=== PATIENT | male | born 1960 | race Caucasian/White ===

== ENCOUNTER 2021-02-05 00:29 | Emergency (ER) | payer MEDICAID ==
[~2021-02-05] VITALS: Ht 190.5 cm; Wt 145.5 kg
[~2021-02-05 00:29] MED LIST: ANTIVERT 25MG25 MG PO; CLARINEX-D12 HO1 T12 PO; INDERAL 20MG20 MG PO; MEDROL 4MG DOSPA4 MG PO; PAXIL 10MG10 MG PO; PERCOCET 325 MG1 TA2 PO; PHENERGAN 25 TA25 MG PO; PRILOSEC 20MG20 MG PO; ZITHROMAX 250M250 MG PO
[2021-02-05 01:07] LABS: COLLECTION METHOD CLEAN CATCH
[2021-02-05 01:12] LABS: BASO % 0.3 % (0.0-2.0); EOS # 0.1 (0.0-0.7); EOS % 0.8 % (0-4.0); GRAN # 7.5 (1.4-6.5); GRAN % 77.6 % (42.2-75.2); HEMATOCRIT 42.9 % (42.0-52.0); HEMOGLOBIN 14.3 g/dl (13.5-18.0); LYMPH # 1.3 (1.2-3.4); LYMPH % 13.2 % (20.0-51.0); MEAN CELL VOLUME 97 fl (80.0-100.0); MEAN CORPUSCULAR HEMOGLOBIN 32 pg (27.0-31.0); MEAN CORPUSCULAR HGB CONC 33 g/dl (33.0-37.0); MONO # 0.8 (0.1-0.6); MONO % 7.9 % (1.7-9.3); PLATELET COUNT 186 K/mm3 (130-400); RED BLOOD COUNT 4.42 M/mm3 (4.20-5.60); REDCELL DISTRIBUTION WIDTH-CV 14.2 % (11.5-14.5)
[2021-02-05 01:27] LABS: MUCOUS Present /lpf; PH 5 (5-8); SQUAMOUS EPITHELIAL 0-2 /hpf; URINE APPEARANCE Hazy; URINE BACTERIA None Seen /hpf; URINE BILIRUBIN Negative (NEGATIVE); URINE BLOOD 3+ (NEGATIVE); URINE COLOR Yellow; URINE GLUCOSE Negative (NEGATIVE); URINE KETONE Negative (NEGATIVE); URINE LEUKOCYTE ESTERASE Negative (NEGATIVE); URINE NITRATE Negative (NEGATIVE); URINE PROTEIN(semi-quant) 1+ (NEGATIVE); URINE RBC >50 /hpf; URINE UROBILINOGEN >=4.0 mg/dL (NEGATIVE)
[2021-02-05 02:15] LABS: ALBUMIN 3.4 gm/dL (3.5-5.0); BILIRUBIN,TOTAL 0.3 mg/dL (0.2-1.2); CALCIUM 9.3 mg/dL (8.4-10.2); CREATININE, serum 1.27 mg/dL (0.72-1.25); POTASSIUM 4.4 mmol/L (3.5-4.5); TOTAL PROTEIN 7.1 gm/dL (6.2-8.1)
[2021-02-05 03:09] VITALS: TEMP 97.9
[2021-02-05] MEDS ORDERED: TORADOL 10MG TA10 MG PO (04:20)
[2021-02-05] MEDS ORDERED: ZOFRAN ODT4 MG PO (04:20)
[2021-02-05 04:35] VITALS: BP 145/90; PULSE 89
== END 2021-02-05 04:35 | disposition home or self-care (01) ==
LOC: COL.ER 00:29
PROVIDERS: Emergency Medicine
DX: N13.2 Hydronephrosis with renal and ureteral calculous obstruction (principal); F32.A Depression, unspecified; F41.9 Anxiety disorder, unspecified; I10 Essential (primary) hypertension; F17.210 Nicotine dependence, cigarettes, uncomplicated; Z79.899 Other long term (current) drug therapy
CPT/HCPCS: J1170; J1885; J2270; J2405; J7030; Q9967

== ENCOUNTER → 2021-02-12 | Outpatient (CLI) | payer MEDICAID ==
[~2021-02-12] MED LIST changes: +TORADOL 10MG TA10 MG PO; +ZOFRAN ODT4 MG PO
== END ==
LOC: COL.RAD 09:55
DX: N28.89 Other specified disorders of kidney and ureter (principal)
CPT/HCPCS: Q9967